=== PATIENT | female | born 1990 | race Caucasian/White ===

== ENCOUNTER 2018-10-09 17:58 | Emergency (ER) | payer SELFPAY ==
[2018-10-09 18:01] VITALS: BP 136/97; PULSE 98; RESP 15; TEMP 37.3; O2SAT 97; BMI 30.7
--- NOTE | 2018-10-09 19:38 | CM.ED ---
SOCIAL WORK NOTE PT PRESENTS TO ED WITH DENTAL PAIN. MET WITH PT IN ROOM. INTRODUCED THIS WORKER'S ROLE AND REASON FOR REFERRAL. PT STATES DOES NOT HAVE INSURANCE SHE IS NOW OVER INCOME FOR MEDICAID. DISCUSSED OPTIONS. PT DOES NOT HAVE PCP OR DENTIST. INFORMATION OF THE FREE CLINIC PROVIDED. PT DENIES ANY OTHER QUESTIONS OR NEEDS AT THE TIME. UPDATED PT'S NURSE, REBECCA. EMMANUEL ALFONSO, VERIFICATION LEAD, COMPUTER PROGRAMMER.
--- NOTE | 2018-10-09 19:49 | ED.VISSUMM ---
- ER Visit Summary Date of Service: 10/09/18 Chief Complaint: Dental pain History of Present Illness: The patient is a 28 F who presents with dental pain that she localized to the left upper molar since . She states her tooth broke. She denies history rheumatic fever, murmur, SPE, IV drug use or being immune suppressed. She does complain of subjective fever. She denies ocular, visual auditory symptoms. She denies difficulty opening or closing her mouth. She denies change in voice. She denies facial swelling or redness. Physical Examination: Vital signs noted. Third left upper molar has fractured with exposure of pulp and what appears to be drainage. There is no evidence of facial cellulitis or swelling. Head is atraumatic normocephalic. Pupils are equal round reactive. Extraocular muscles are intact. TMs are pearly white with landmarks noted. Nares patent with no drainage. Posterior pharynx without erythema or exudate. Uvula is midline. There is no dysphonia or dysphasia. Trachea is midline. There is no stridor with auscultation of the neck. Heart is regular without murmur, gallop or rub. S1 and S2 are normal. Lungs are clear to auscultation with good movement of air bilaterally. She is alert and oriented x3 with a nonfocal neurologic exam Test Results: None were obtained Emergency Department Course and Treatment: Pen-Vee K 500 mg p.o. Patient states she took ibuprofen 800 mg 4 hours ago. Treatment Plan: Referral to [facility] for dental care, prescription for Pen-Vee K and Altha Disposition: Discharge with outpatient follow-up Impression: 1. Periapical abscess left upper third molar 2. Dental caries with exposure of pulp left upper third molar This note was generated with [employer] dictation software. It may contain incorrect words, spelling, and punctuation that were not noted in review of the chart prior to signing ED Disposition - Plan for ED Patient: Disposition: Home or Assisted Living Instructions: Dental Abscess Prescriptions: Hydrocodone Bitart/Apap 5-325 [Altha 5MG-325MG] 1 tab PO Q6H PRN PRN 3 Days #10 tab PRN Reason: Pain Penicillin V Potassium 500 mg PO 4X/DAY #40 tab Referrals: Care Physician,No Primary [Primary Care Provider] - Trinity Olivo [NON-STAFF] - As soon as possible Additional Instructions: Return if unable to open or close her mouth completely, return if any trouble with breathing or swallowing or facial swelling with redness.
--- NOTE | 2018-10-09 19:53 | ED.DCSUM_ITS ---
- ER Visit Summary Date of Service: 10/09/18 Chief Complaint: Dental pain History of Present Illness: The patient is a 28 F who presents with dental pain that she localized to the left upper molar since . She states her tooth broke. She denies history rheumatic fever, murmur, SPE, IV drug use or being immune suppressed. She does complain of subjective fever. She denies ocular, visual auditory symptoms. She denies difficulty opening or closing her mouth. She denies change in voice. She denies facial swelling or redness. Physical Examination: Vital signs noted. Third left upper molar has fractured with exposure of pulp and what appears to be drainage. There is no evidence of facial cellulitis or swelling. Head is atraumatic normocephalic. Pupils are equal round reactive. Extraocular muscles are intact. TMs are pearly white with landmarks noted. Nares patent with no drainage. Posterior pharynx without erythema or exudate. Uvula is midline. There is no dysphonia or dysphasia. Trachea is midline. There is no stridor with auscultation of the neck. Heart is regular without murmur, gallop or rub. S1 and S2 are normal. Lungs are clear to auscultation with good movement of air bilaterally. She is alert and oriented x3 with a nonfocal neurologic exam Test Results: None were obtained Emergency Department Course and Treatment: Pen-Vee K 500 mg p.o. Patient states she took ibuprofen 800 mg 4 hours ago. Treatment Plan: Referral to [facility] for dental care, prescription for Pen- Vee K and Scotia Disposition: Discharge with outpatient follow-up Impression: 1. Periapical abscess left upper third molar 2. Dental caries with exposure of pulp left upper third molar This note was generated with [employer] dictation software. It may contain incorrect words, spelling, and punctuation that were not noted in review of the chart prior to signing ED Disposition - Plan for ED Patient: Disposition: Home or Assisted Living Instructions: Dental Abscess Prescriptions: Hydrocodone Bitart/Apap 5-325 [Sc[place] 5MG-325MG] 1 tab PO Q6H PRN PRN 3 Days #10 tab PRN Reason: Pain Penicillin V Potassium 500 mg PO 4X/DAY #40 tab Referrals: Care Physician,No Primary [Primary Care Provider] - Trinity Olivo [NON-STAFF] - As soon as possible Additional Instructions: Return if unable to open or close her mouth completely, return if any trouble w ith breathing or swallowing or facial swelling with redness.
[2018-10-09] MEDS: Penicillin Vk 250 MG Tablet 500 MG PO (20:00)
[2018-10-09 20:01] VITALS: RESP 18; O2SAT 100
== END 2018-10-09 20:01 | disposition home or self-care (01) ==
PROVIDERS: Emergency Provider Emergency Medicine
DX: K04.7 Periapical abscess without sinus (principal); K02.9 Dental caries, unspecified
CPT/HCPCS: 99283

== ENCOUNTER 2019-03-12 22:35 | Emergency (ER) | payer SELFPAY ==
[2019-03-12 22:37] VITALS: BP 155/97; PULSE 91; RESP 18; TEMP 36.1; O2SAT 98; BMI 30.2
--- NOTE | 2019-03-13 00:25 | ED.VISSUMM ---
- ER Visit Summary Date of Service: 03/13/19 Chief Complaint: Dental pain History of Present Illness: The patient is a 28 F who presents with dental pain. This has been present for about 1-1/2 weeks. It was initially pressure-like. However it has become increasingly painful over the last 3 days. She did have a temperature of 101 at home earlier today. She reports nausea no vomiting. No jaw or facial swelling. She does have a history of prior similar symptoms. She states it is the same tooth that has given her recurrent problems. Physical Examination: Afebrile vitals normal No distress resting comfortably Patient has focal decay with exposed pulp of the left maxillary third molar there is no focal dental abscess amenable to incision and drainage at this time No trismus, clear speech No facial or jaw swelling Test Results: Not indicated Emergency Department Course and Treatment: Patient will be treated with naproxen and penicillin VK. She was given a list of dental clinics. She understands to return for new or worsening symptoms otherwise to follow-up as an outpatient. Patient discharged. Treatment Plan: [] Disposition: Discharge Impression: Odontalgia This note was generated with [employer] dictation software. It may contain incorrect words, spelling, and punctuation that were not noted in review of the chart prior to signing ED Disposition - Plan for ED Patient: Referrals: Care Physician,No Primary [Primary Care Provider] -
--- NOTE | 2019-03-13 00:27 | ED.DEP ---
ED Disposition - Plan for ED Patient: Instructions: Dental Pain Prescriptions: Naproxen [Naprosyn] 500 mg PO BID #20 tab Prescription Printed Penicillin V Potassium 500 mg PO 4X/DAY #40 tab Prescription Printed Referrals: Care Physician,No Primary [Primary Care Provider] -
[2019-03-13 01:34] VITALS: RESP 16
--- NOTE | 2019-03-13 01:35 | ED.RN ---
REVIEWED D/C INSTRUCTIONS, FOLLOW UP CARE, PRESCRIPTIONS, AND S/S THAT WOULD WARRANT A RETURN TO THE ED WITH PT. PT VERBALIZED AN UNDERSTANDING AND DENIES FURTHER QUESTIONS FOR THIS RN. PT SKIN P/W/D, RESP EVEN AND UNLABORED, PT A&O X 3, NO DISTRESS NOTED. PT AMBULATED OUT OF ED, GAIT STEADY.
== END 2019-03-13 01:36 | disposition home or self-care (01) ==
LOC: ED 03-13 00:21
PROVIDERS: Emergency Provider Emergency Medicine
DX: K08.89 Other specified disorders of teeth and supporting structures (principal); Z72.0 Tobacco use
CPT/HCPCS: 99282